=== PATIENT | female | born 1960 | race Caucasian/White ===

== ENCOUNTER 2020-07-07 13:50 | Inpatient (IN) | payer OTHER, SELFPAY ==
--- NOTE | ~2020-07-07 | XR_ITS ---
XR hip LT 2V w AP pelvis DATE: 07/07/2020 14:30 INDICATION: Fall. Left hip and groin pain TECHNIQUE: AP pelvis and AP views of left hip COMPARISON: None FINDINGS: There is lucency overlying the left intertrochanteric and basicervical area, very suspiciou s for nondisplaced fracture. CT examination is recommended to confirm. No pelvic fracture. Pubic symphysis and sacroiliac joints are intact. Prominent proximal lateral left thigh soft tissue calcification. IMPRESSION: Suspected left intertrochanteric hip fracture; recommend CT left hip CT. Reviewed, dictated and finalized at location A. IMPRESSION: Suspected left intertrochanteric hip fracture; recommend CT left hi p CT.
--- NOTE | ~2020-07-07 | XR_ITS ---
EXAMINATION: XR surgery orthopedic DATE: 07/08/2020 17:39 INDICATION: Intertrochanteric fracture of proximal left femur. TECHNIQUE: 4 intraoperative fluoroscopic views of left hip were obtained. I was not present. Fluorosc opy exposure time was 371 seconds. COMPARISON: Left hip radiographs 07/07/2020 FINDINGS: There is an intertrochanteric fracture of proximal left femur in near-anatomic alignment st atus post open reduction internal fixation with antegrade intramedullary dom, femoral head/neck screw , and distal interlocking screw. IMPRESSION: 1. Intertrochanteric fracture of proximal left femur status post open reduction internal fixation. Reviewed, dictated and finalized at location A.
[2020-07-07 13:55] VITALS: BP 134/79; PULSE 79; RESP 20; TEMP 36.8; O2SAT 100
--- NOTE | 2020-07-07 14:18 | ED.GENADULT ---
HPI - General Adult General Chief complaint: Fall Stated complaint: fall/groin pain Time Seen by Provider: 07/07/20 13:59 Source: patient History of Present Illness HPI narrative: Patient is a 59 y/o female complaining of left groin pain after a fall 1 hour ago. She states that she was doing some yard work and tripped over a rake and fell on left side. She describes her pain as sharp and rates it as 6/10 at rest and 8/10 with movement. She states that her pain radiates to left thigh. Movement worsens the pain. She denies hitting head or having LOC. She has no neck pain, back pain, chest pain or abdominal pain. She was given Fentanyl 50 mcg by EMS and it helped with her pain. Related Data Home Medications Medication Instructions Recorded Confirmed citalopram [Celexa] 10 mg PO DAILY 07/07/20 07/07/20 Allergies Allergy/AdvReac Type Severity Reaction Status Date / Time Sulfa (Sulfonamide Allergy Mild Unknown Verified 07/07/20 15:37 Antibiotics) Review of Systems Constitutional: Constitutional: Denies chills, Denies fever(s), Denies headache(s) and Denies weakness Eyes: Eyes: Denies blurry vision ENT: Denies headache(s) and Denies neck pain Cardiovascular: Cardiovascular: Denies chest pain and Denies dyspnea Respiratory: Respiratory: Denies cough and Denies dyspnea Gastrointestinal: Gastrointestinal: Denies abdominal pain, Denies diarrhea, Denies nausea and Denies vomiting Genitourinary: Genitourinary: Denies hematuria and Denies dysuria Musculoskeletal: Musculoskeletal: Denies back pain, Denies neck pain and Reports other (left groin pain) Neurologic: Denies headache(s) and Denies weakness [facility] Social History Social History Gender identity (if verbalized by the patient): Female Exam Const: General: no acute distress and well developed Orientation/consciousness: oriented to person, oriented to place, oriented to time and patient oriented x3 HENMT: Head: normocephalic Ears: external ears normal General nose exam: Normal external nose present Eyes: General: appearance normal, both eyes and all related structures Conjunctivae: conjunctivae normal Neck: Neck: normal visual inspection and full ROM Chest: Chest palpation & inspection: normal inspection of the chest and no tenderness Resp: Effort & Inspection: normal respiratory effort Auscultation: clear to auscultation bilaterally Cardio: Rate: regular rate Rhythm: regular rhythm GI: GI Palp: No abdominal tenderness and Yes Soft to palpation Skin: General skin exam: normal color and turgor normal Neuro: General: oriented to person, oriented to place, oriented to time and patient oriented x3 Cognition (Neuro): normal cognition Extrem: General: normal to inspection, full ROM and no pedal edema Left lower extremity: hip/thigh Details: other (pain with passive ROM) Psych: Appearance: grossly normal Mental Status: mental status grossly normal Affect: normal affect Course Consultations Consultation #1: Discussed with Dr. Abbott, who agrees to admit. Date: 07/07/20 Time: 15:02 Vital Signs Vital signs: Vital Signs Temperature 36.8 C 07/07/20 13:55 Pulse Rate 79 07/07/20 13:55 Respiratory Rate 20 07/07/20 13:55 Blood Pressure 134/79 07/07/20 13:55 Pulse Oximetry 100 07/07/20 13:55 Temperature 36.8 C 07/07/20 16:30 Pulse Rate 82 07/07/20 16:30 Respiratory Rate 16 07/07/20 16:30 Blood Pressure 117/73 07/07/20 16:30 Pulse Oximetry 100 07/07/20 16:30 Medical Decision Making Vital Signs Vital Signs: Vital Signs Temperature 36.8 C 07/07/20 13:55 Pulse Rate 79 07/07/20 13:55 Respiratory Rate 20 07/07/20 13:55 Blood Pressure 134/79 07/07/20 13:55 Pulse Oximetry 100 07/07/20 13:55 Temperature 36.8 C 07/07/20 16:30 Pulse Rate 82 07/07/20 16:30 Respiratory Rate 16 07/07/20 16:30 Blood Pressure 117/73 07/07/20 16:30
[2020-07-07 15:00] VITALS: BP 109/75; PULSE 84; RESP 18; TEMP 36.6; O2SAT 100
--- NOTE | 2020-07-07 15:02 | ECG_ITS ---
Measurements Intervals [place] Rate: 83 P: 33 NM: 129 QRS: 45 QRSD: 91 T: 57 QT: 387 QTc: 457 Interpretive Statements SINUS RHYTHM BASELINE ARTIFACT- I, II, AVR, AVF, V3-V6 NORMAL ECG Electronically Signed On 07-07-2020 19:24:17 CDT by Nicolas Duque D.O.
[2020-07-07 15:08] LABS: Basophils Percent Auto 0.3 % (0.2-1.2); Eosinophils Absolute Auto 0.1 K/mm3 (0-0.3); Eosinophils Percent Auto 0.5 % (0-4.4); Hematocrit 39.4 % (37.0-47.0); Hemoglobin 12.4 g/dL (12.0-15.0); Immature Granulocyte Absolute 0.08 K/mm3 (0.00-0.031); Immature Granulocyte Percent A 0.7 % (0-0.5); Lymphocytes Absolute Auto 1.17 K/mm3 (0.9-3.2); Lymphocytes Percent Auto 10.2 % (18.3-44.2); Mean Corpuscular HGB Conc 31.5 g/dl (32-36); Mean Corpuscular Volume 92.3 fl (80-100); Mean Platelet Volume 9.7 fl (7.4-10.4); Monocytes Absolute Auto 0.5 K/mm3 (0.1-0.6); Monocytes Percent Auto 4.3 % (2.6-8.5); Neutrophils Absolute Auto 9.6 K/mm3 (1.3-6.7); Platelet Count Result 328 k/mm3 (150-375); Red Blood Count 4.27 M/mm3 (4.2-5.4); Red Cell Distribution Width 12.9 % (11.5-14.5); White Blood Count 11.5 K/mm3 (4.5-10.0)
[2020-07-07 15:20] LABS: Alanine Aminotransferase 35 U/L (4-35); Albumin Level 4.2 g/dL (3.5-5.1); Alkaline Phosphatase 86 U/L (38-126); Anion Gap 3 mmol/L (8-16); Aspartate Amino Transferase 40 U/L (14-36); Bilirubin,Total 0.3 mg/dL (0.2-1.3); Blood Urea Nitrogen 14 mg/dL (7-17); Calcium 9.1 mg/dL (8.4-10.2); Carbon Dioxide 32 mmol/L (22-30); Chloride 103 mmol/L (98-107); Estimated Glomerular Filt Rate > 60; Glucose 119 mg/dL (65-105); Potassium 4.1 mmol/L (3.4-5.0); Sodium 138 mmol/L (137-145)
[2020-07-07 15:24] LABS: INR 0.9; Prothrombin Time 12.3 Seconds (11.1-14.7)
[2020-07-07 15:26] LABS: Partial Thromboplastin Time 22.9 SECONDS (22.3-36.8)
[2020-07-07] MEDS: MORPHINE SULFATE (*CRX) 4 MG/ML INJ IV PUSH ×2 (15:37→18:33)
[2020-07-07 16:30] VITALS: BP 117/73; PULSE 82; RESP 16; TEMP 36.8; O2SAT 100
[2020-07-07 17:29] VITALS: BP 131/66; PULSE 88; RESP 16; TEMP 37; O2SAT 99
--- NOTE | 2020-07-07 17:40 | ADMGEN ---
This patient, Magnolia Covarrubias, was admitted to Medical Room 251-01. Patient/family oriented to hospital policies and general routines including ID bracelet, bed and alarms, visiting hours, pain management, procedures, bathroom and other care routines, personal items, smoking policy, room service/diet, and visiting hours. Information on how to activate the Rapid Response Team has been discussed. Patient/Family are encouraged to report perceived risks to care and to ask questions if they do not understand what they are told or what they should do.
[2020-07-07] MEDS: HYDROcodone/acetaminophen (*CRX) 5-325 MG TABLET 1 TAB PO ×2 (17:55→22:07)
[2020-07-07 18:00] VITALS: BP 131/55; PULSE 90; RESP 16; TEMP 36.7; O2SAT 99; BMI 22.6
[2020-07-07 21:35] VITALS: BP 121/64; PULSE 93; RESP 16; TEMP 36.7; O2SAT 99
[2020-07-08] VITALS (16 sets, daily range): BP systolic 101–151; BP diastolic 49–95; PULSE 74–102; RESP 13–18; TEMP 35.7–37; O2SAT 90–100
[2020-07-08] MEDS: HYDROcodone/acetaminophen (*CRX) 5-325 MG TABLET 1 TAB PO ×2 (02:07→08:49)
--- NOTE | 2020-07-08 09:10 | PM.IMHP ---
H&P: HPI History of Present Illness Date/Time: 07/08/20 09:10 59-year-old female admitted to [facility] via ambulance 59-year-old female admitted [facility] via ambulance after a fall at home tripping over a rake. Patient reports acute onset left hip pain status post fall. She was unable to bear weight. EMS was called and she was transported by ambulance to [facility] Emergency Room. Radiographs the left hip obtained in the emergency room reveal a left intertrochanteric hip fracture. Patient admitted to the orthopedic service for surgical planning and pain control. Chief Complaint: Left Hip IT Fracture Review of Systems Constitutional: Constitutional: Reports no additional constitutional complaints, Denies chills, Denies fatigue, Denies fever(s), Denies headache(s) and Denies weakness Eyes: Eyes: Denies change in vision ENT: Reports Normal hearing present and Denies headache(s) Cardiovascular: Cardiovascular: Denies chest pain and Denies dyspnea Respiratory: Respiratory: Denies cough, Denies dyspnea and Denies wheezing Gastrointestinal: Gastrointestinal: Denies constipation, Denies diarrhea, Denies nausea and Denies vomiting Genitourinary: Genitourinary: Denies hematuria and Denies dysuria Musculoskeletal: Musculoskeletal: Reports as per HPI, Denies numbness and Denies tingling Integumentary/Breasts: Skin/Breast: Reports as per HPI Neurologic: Reports as per HPI, Reports Normal hearing present, Denies headache(s), Denies numbness, Denies tingling and Denies weakness Psychiatric: Psychiatric: Reports no additional psychiatric complaints Endocrine: Endocrine: Reports no additional endocrine complaints and Denies fatigue Hematologic/Lymphatic: Hematologic/Lymphatic: Reports no additional hematologic/lymphatic complaints Allergic/Immunologic: Allergic/Immunologic: Reports no additional allergic/immunologic complaints and Denies wheezing [facility] Social History Social History (Updated 07/08/20 @ 09:18 by ADRIANA Umana) Social History: Patient lives at home with her . She currently works for the [employer]. She denies smoking. She occasionally drinks alcohol. Smoking status: Never smoker Second hand tobacco smoke exposure: No Alcohol intake: current Drinks per week: 3 Substance use: never Substance use type: does not use Living arrangements: with family Additional living arrangements comments: Patient lives at home with her Occupation/Education: occupation Additional occupation/education comments: Patient reports that she works for the [employer] Gender identity (if verbalized by the patient): Female Sexual Orientation (if Verbalized by the Patient): Straight or Heterosexual Spiritual care concerns: No Meds Home Medications and Allergies Home Medications Medication Instructions Recorded Confirmed Type citalopram [Celexa] 10 mg PO DAILY 07/07/20 07/07/20 History Allergies Allergy/AdvReac Type Severity Reaction Status Date / Time Sulfa (Sulfonamide Allergy Mild Unknown Verified 07/07/20 18:09 Antibiotics) Vital Signs Vital Signs - 24 hr 07/07/20 13:55 07/07/20 15:00 07/07/20 16:30 Temperature 36.8 C 36.6 C 36.8 C Pulse Rate 79 84 82 Respiratory Rate 20 18 16 Blood Pressure 134/79 109/75 117/73 Pulse Oximetry 100 100 100 07/07/20 17:29 07/07/20 18:00 07/07/20 21:35 Temperature 37.0 C 36.7 C 36.7 C Pulse Rate 88 90 93 Respiratory Rate 16 16 16 Blood Pressure 131/66 131/55 L 121/64 Pulse Oximetry 99 99 99 07/08/20 02:00 07/08/20 05:37 07/08/20 07:49 Temperature 36.8 C 36.6 C Pulse Rate 81 74 Respiratory Rate 16 16 Blood Pressure 107/52 L 101/54 L Pulse Oximetry 98 100 96 07/08/20 08:00 Temperature 35.7 C L Pulse Rate 77 Respiratory Rate 18 Blood Pressure 113/52 L Pulse Oximetry 100 Exam Const: General: cooperative and comfortable Nutritional Appe
--- NOTE | 2020-07-08 13:30 | PC.NURSE ---
To OR per bed, IV intact. Report given to Ct RN.
[2020-07-08] MEDS: LACTATED RINGERS 1,000 ML 30 ML IV CONT ×2 (13:40→17:48)
--- NOTE | 2020-07-08 13:49 | WPDANESEPPF ---
Anes - Initial Pre Proc Eval Procedure: Operation Date: 07/08/20 15:00 Proposed Procedures p Left Hip Gamma Nail - Asad Abbott MD Date/Time: 07/08/20 13:49 Surgeon: Asad Abbott MD Pre Op Diagnosis: left hip fracture Patient Data Age: 59 Gender: F Height: 1.7 m Weight: 65.7 kg Last Vital Signs Temp 36.7 C 07/08/20 12:00 Pulse 86 07/08/20 12:00 Resp 18 07/08/20 12:00 BP 119/54 L 07/08/20 12:00 Pulse Ox 98 07/08/20 12:00 Allergies Allergy/AdvReac Type Severity Reaction Status Date / Time Sulfa (Sulfonamide Allergy Mild Unknown Verified 07/08/20 13:41 Antibiotics) Home Medications Medication Instructions Recorded Confirmed Type citalopram [Celexa] 10 mg PO DAILY 07/07/20 07/07/20 History Laboratory Tests 07/07/20 07/07/20 07/07/20 15:03 15:03 15:03 WBC 11.5 K/mm3 H K/mm3 (4.5-10.0) RBC 4.27 M/mm3 M/mm3 (4.2-5.4) Hgb 12.4 g/dL g/dL (12.0-15.0) Hct 39.4 % % (37.0-47.0) MCV 92.3 fl fl (80-100) MCH 29.0 pg pg (26-34) MCHC 31.5 g/dl L g/dl (32-36) RDW 12.9 % % (11.5-14.5) Plt Count 328 k/mm3 k/mm3 (150-375) MPV 9.7 fl fl (7.4-10.4) Immature Gran % (Auto) 0.7 % H % (0-0.5) Neut % (Auto) 84.0 % H % (45.5-73.1) Lymph % (Auto) 10.2 % L % (18.3-44.2) [place] % (Auto) 4.3 % % (2.6-8.5) Eos % (Auto) 0.5 % % (0-4.4) Baso % (Auto) 0.3 % % (0.2-1.2) Lymph # (Auto) 1.17 K/mm3 K/mm3 (0.9-3.2) [place] # (Auto) 0.5 K/mm3 K/mm3 (0.1-0.6) Eos # (Auto) 0.1 K/mm3 K/mm3 (0-0.3) Baso # (Auto) 0.0 K/mm3 K/mm3 (0.0-0.1) Abs Immat Gran (auto) 0.08 K/mm3 H K/mm3 (0.00-0.031) Absolute Neuts (auto) 9.6 K/mm3 H K/mm3 (1.3-6.7) Absolute Nucleated RBC 0.0 K/mm3 K/mm3 (0.0-0.012) Nucleated RBC % 0.0 % % (0.0-0.2) PT 12.3 Seconds Seconds (11.1-14.7) INR 0.9 APTT 22.9 SECONDS SECONDS (22.3-36.8) Sodium 138 mmol/L mmol/L (137-145) Potassium 4.1 mmol/L mmol/L (3.4-5.0) Chloride 103 mmol/L mmol/L (98-107) Carbon Dioxide 32 mmol/L H mmol/L (22-30) Anion Gap 3 mmol/L L mmol/L (8-16) BUN 14 mg/dL mg/dL (7-17) Creatinine 0.70 mg/dL mg/dL (0.7-1.0) Estim Creat Clear Calc Not Reportable Estimated GFR > 60 (59 - ) Glucose 119 mg/dL H mg/dL (65-105) Calcium 9.1 mg/dL mg/dL (8.4-10.2) Total Bilirubin 0.3 mg/dL mg/dL (0.2-1.3) AST 40 U/L H U/L (14-36) ALT 35 U/L U/L (4-35) Alkaline Phosphatase 86 U/L U/L (38-126) Total Protein 7.0 g/dL g/dL (6.3-8.2) Albumin 4.2 g/dL g/dL (3.5-5.1) Blood Type Antibody Screen 07/07/20 15:13 WBC RBC Hgb Hct MCV MCH MCHC RDW Plt Count MPV Immature Gran % (Auto) Neut % (Auto) Lymph % (Auto) [place] % (Auto) Eos % (Auto) Baso % (Auto) Lymph # (Auto) [place] # (Auto) Eos # (Auto) Baso # (Auto) Abs Immat Gran (auto) Absolute Neuts (auto) Absolute Nucleated RBC Nucleated RBC % PT INR APTT Sodium Potassium Chloride Carbon Dioxide Anion Gap BUN Creatinine Estim Creat Clear Calc Estimated GFR Glucose Calcium Total Bilirubin AST ALT Alkaline Phosphatase Total Protein Albumin Blood Type A Negative Antibody Screen Negative Patient hx anesthesia problems: none Family hx anesthesia problems: none [facility] Past Medical History Medical History (Updated 07/08
[2020-07-08] MEDS: TRANEXAMIC ACID 1,000MG/ISO100 1,000 MG/100 ML BAG 200 MG IVPB (13:53)
--- NOTE | 2020-07-08 16:02 | WPDHPUPDATE1 ---
History and Physical Update Update Date/Time: 07/08/20 16:02 History and Physical has been reviewed, including an updated exam of the patient. There are NO changes in the patient's condition. Risks, benefits, and alternatives have been discussed and questions answered. Patient agrees to proceed with procedure.
[2020-07-08] MEDS: ceFAZolin 2 GM/D5W 50 ML 2 GM/50 ML BAG IVPB ×2 (16:07→23:39)
[2020-07-08] MEDS: TRANEXAMIC ACID 1,000 MG/10 ML AMPUL 1000 MG IV PUSH (17:31)
--- NOTE | 2020-07-08 17:45 | PM.PROC ---
Procedure Note - Detailed Date of procedure: 07/08/20 Pre-op diagnosis: left hip fracture Post-op diagnosis: same Procedure performed: INSERTION OF GAMMA OSWALDO LEFT HIP FRACTURE Description of procedure: THE PATIENT WAS TAKEN TO THE OR AND PLACED ON A FRACTURE TABLE AFTER RECEIVING GIVEN GENERAL ANESTHESIA. THE LEFT LOWER EXTREMITY WAS PLACED IN A TRACTION BOOT AND USING SOME TRACTION AND INTERNAL ROTATION THE INNER TROCHANTERIC FRACTURE WAS REDUCED TO ANATOMIC POSITION. NEXT THE LEFT LOWER EXTREMITY WAS PREPPED AND DRAPED IN THE STERILE FASHION. AN INCISION WAS MADE PROXIMAL TO THE TIP OF THE GREATER TROCHANTER AND DISSECTION CONTINUED TILL THE TIP OF THE GREATER TROCHANTER WAS PALPATED. A GUIDE WAS PLACED DOWN THE FEMORAL CANAL AND PAST THE FRACTURE SITE. THIS WAS CHECKED ON FLUOROSCOPY AND FOUND TO BE IN GOOD POSITION. AN INITIAL REAMER WAS USED TO REAM THE FEMORAL CANAL. A 10 BY 180 MM GAMMA OSWALDO WAS INSERTED TILL THE CORRECT POSITION WAS IDENTIFIED ON XRAY. A GUIDE PIN WAS INSERTED AT [address] TILL IT REACHED THE TIP OF THE SUB CHONDRAL BONE SEEN ON XRAY. AFTER REAMING, LAG SCREW WAS INSERTED AT [address] MEASURING 95 MM. XRAYS SHOWED IT TO BE IN GOOD POSITION. THE LAG SCREW WAS LOCKED PROXIMALLY WITH A LOCKING SCREW. NEXT A DISTAL LOCKING SCREW WAS PLACED ACROSS THE OSWALDO AND WAS IN GOOD POSITION ON XRAY. THE TRACTION WAS RELEASED. THE WOUNDS WERE WASHED. THE DEEP FASCIA WAS REPAIRED WITH 0 VICRYL SUTURE, THE SUB CUTANEOUS LAYER WITH 2-0 VICRYL, AND THE SKIN WITH RIMMA. THE WOUNDS WERE WASHED AND THEN STERILE DRESSING WAS APPLIED. PATIENT WAS EXTUBATED AND SENT TO RECOVERY ROOM. Anesthesia: GLMA Surgeon: Asad Abbott MD Estimated blood loss (mL): 250 Drains: No Packing: No Pathology: none sent Complications: No immediate complications Condition: stable Disposition: PACU
--- NOTE | 2020-07-08 18:42 | PC.NURSE ---
Returned from OR per bed. Report received from MILDRED Mcgee.
[2020-07-08] MEDS: MORPHINE SULFATE (*CRX) 4 MG/ML INJ 3 MG IV PUSH (19:29)
[2020-07-09] VITALS: BP 118/54; PULSE 82; RESP 16; TEMP 36.4; O2SAT 98
[2020-07-09 04:00] VITALS: BP 118/68; PULSE 78; RESP 18; TEMP 36.3; O2SAT 98
[2020-07-09 05:44] LABS: Basophils Percent Auto 0.2 % (0.2-1.2); Hemoglobin 11.1 g/dL (12.0-15.0); Immature Granulocyte Absolute 0.03 K/mm3 (0.00-0.031); Immature Granulocyte Percent A 0.3 % (0-0.5); Lymphocytes Absolute Auto 0.93 K/mm3 (0.9-3.2); Lymphocytes Percent Auto 9.4 % (18.3-44.2); Mean Corpuscular HGB Conc 32.6 g/dl (32-36); Mean Corpuscular Hemoglobin 29.2 pg (26-34); Mean Corpuscular Volume 89.5 fl (80-100); Mean Platelet Volume 10.1 fl (7.4-10.4); Monocytes Absolute Auto 0.6 K/mm3 (0.1-0.6); Monocytes Percent Auto 6.2 % (2.6-8.5); Neutrophils Absolute Auto 8.3 K/mm3 (1.3-6.7); Neutrophils Percent Auto 83.9 % (45.5-73.1); Platelet Count Result 269 k/mm3 (150-375); Red Cell Distribution Width 12.8 % (11.5-14.5); White Blood Count 9.9 K/mm3 (4.5-10.0)
--- NOTE | 2020-07-09 07:32 | P.PNAN_ITS ---
Anes - Prog Note Post-Op Date/Time: 07/09/20 07:32 Cardiovascular status: normal Respiratory status: normal Airway patency: baseline Mental status: baseline Post-Op hydration status: normal Vital Signs: Last Vital Signs Temp 36.3 C L 07/09/20 04:00 Pulse 78 07/09/20 04:00 Resp 18 07/09/20 04:00 BP 118/68 07/09/20 04:00 Pulse Ox 98 07/09/20 04:00 Pain Score (VAS): 4 I/O: Intake & Output 07/08/20 07/08/20 07/09/20 15:59 23:59 07:59 Intake Total 100 150 350 Output Total 300 Balance -200 150 350 Laboratory Tests 07/09/20 05:17 07/07/20 15:03 07/09/20 05:17 WBC 9.9 RBC 3.80 L Hgb 11.1 L Hct 34.0 L MCV 89.5 MCH 29.2 MCHC 32.6 RDW 12.8 Plt Count 269 MPV 10.1 Immature Gran % (Auto) 0.3 Neut % (Auto) 83.9 H Lymph % (Auto) 9.4 L [place] % (Auto) 6.2 Eos % (Auto) 0.0 Baso % (Auto) 0.2 Lymph # (Auto) 0.93 [place] # (Auto) 0.6 Eos # (Auto) 0.0 Baso # (Auto) 0.0 Abs Immat Gran (auto) 0.03 Absolute Neuts (auto) 8.3 H Absolute Nucleated RBC 0.0 Nucleated RBC % 0.0 Post-procedural complaints: none Patient Feedback: Patient satisfied with anesthetic care.
[2020-07-09] MEDS: ceFAZolin 2 GM/D5W 50 ML 2 GM/50 ML BAG IVPB ×2 (09:11→18:03)
[2020-07-09] MEDS: DOCUSATE SODIUM 100 MG CAPSULE PO ×2 (09:11→16:35)
[2020-07-09] MEDS: HYDROcodone/acetaminophen (*CRX) 7.5-325 MG TABLET 1 TAB PO ×2 (09:11→13:47)
[2020-07-09] MEDS: ASPIRIN 325 MG ENTERIC TABLET 650 MG PO (09:12)
[2020-07-09] MEDS: CITALOPRAM HYDROBROMIDE 10 MG TABLET PO (09:12)
[2020-07-09 10:00] VITALS: BP 108/63; PULSE 96; RESP 16; TEMP 36.3; O2SAT 98
--- NOTE | 2020-07-09 10:15 | PM.PNORT ---
Progress Note: A&P Assessment and Plan (1) Closed intertrochanteric fracture of left femur: Qualifiers: Encounter type: initial encounter Fracture alignment: nondisplaced Qualified Code(s): S72.145A - Nondisplaced intertrochanteric fracture of left femur, initial encounter for closed fracture Code(s): S72.142A - Displaced intertrochanteric fracture of left femur, initial encounter for closed fracture Status: Acute Assessment and Plan: POD #1: INSERTION OF GAMMA OSWALDO LEFT HIP FRACTURE Continue PT/OT. TTWB. Walker. HIGH FALL RISK. Continue pain control. Ice lateral hip. DVT prophylaxis. Incentive spirometry. Aspirin. SCDs. Patient prefers home health as opposed to SNF. Per patient, she has a lot of help at home. Dispo: Home with Home Health pending clearance with PT/OT. Subjective Subjective Date/Time Seen: 07/09/20 10:15 POD #1:INSERTION OF GAMMA OSWALDO LEFT HIP FRACTURE No new complaints. Pain well controlled. Hopeful for discharge home as opposed to SNF. Review of Systems Constitutional: Constitutional: Denies chills, Denies fatigue, Denies fever(s), Denies night sweats and Denies weakness Cardiovascular: Cardiovascular: Denies chest pain, Denies lightheadedness, Denies palpitations and Denies dyspnea Respiratory: Respiratory: Denies cough, Denies dyspnea and Denies wheezing Gastrointestinal: Gastrointestinal: Denies abdominal pain, Denies diarrhea, Denies nausea and Denies vomiting Musculoskeletal: Musculoskeletal: Reports arthralgias (left hip ), Reports joint swelling (left hip ) and Denies numbness Neurologic: Denies numbness and Denies weakness Endocrine: Endocrine: Denies fatigue and Denies palpitations Allergic/Immunologic: Allergic/Immunologic: Denies wheezing Exam Const: General: comfortable and no acute distress Resp: Effort & Inspection: normal respiratory effort Cardio: Rate: regular rate Rhythm: regular rhythm GI: Inspection: non-distended Skin: General skin exam: normal color Wounds: wounds noted (incision left hip C/D/I ) Extrem: Right lower extremity: normal to inspection and full ROM Left lower extremity: hip/thigh Details: tenderness Location: of the hip Location: laterally and anteriorly, swelling (thigh soft ) Location: of the hip (lateral. ), abnormal ROM (limitations with internal/external rotation and flexion/extension due to recent surgical intervention ), ecchymosis and other (incision lateral hip c/d/i. ), knee Details: normal to inspection and normal ROM; no tenderness and no swelling, lower leg (Negative Oscar's Sign ) Details: no edema, ankle (+ankle dorsiflexion/plantarflexion ) Details: normal to inspection, no edema and normal ROM; no tenderness, no swelling and no warmth and foot Details: normal capillary refill, toes with normal ROM, vascular exam Details: dorsalis pedis pulse present and motor-sensory exam light-touch normal in all toes; no tenderness, no ecchymosis and no crepitus Psych: Mental Status: mental status grossly normal Affect: normal affect Objective Data Vital Signs Vital Signs: Vital Signs - 24 hr 07/08/20 12:00 07/08/20 13:25 07/08/20 17:48 Temperature 36.7 C 36.6 C 36.4 C L Pulse Rate 86 92 98 Respiratory Rate 18 17 Blood Pressure 119/54 L 121/49 L 148/95 H Pulse Oximetry 98 97 100 07/08/20 18:00 07/08/20 18:15 07/08/20 18:30 Temperature Pulse Rate 102 H 98 87 Respiratory Rate 16 13 15 Blood Pressure 122/89 137/84 118/65 Pulse Oximetry 100 96 95 07/08/20 18:51 07/08/20 19:06 07/08/20 19:36 Temperature 36.4 C 36.9 C 37.0 C Pulse Rate 89 95 89 Respiratory Rate 18 18 16 Blood Pressure 127/58 L 125/53 L 132/65 Pulse Oximetry 96 90 97 07/08/20 20:00 07/08/20 20:36 07/08/20 22:00 Temperature 36.6 C 36.4 C Pulse Rate 95 83 76 Respiratory Rate 18 16 16 Blood Pressure 124/57 L 151/70 H Pulse Oximetry 90 97 100 07/09/20 00:00 07/09/20 04:00 Temperature 36.4 C 36.3 C L Pulse Rate 82 78 Re
[2020-07-09 14:00] VITALS: BP 111/56; PULSE 88; RESP 14; TEMP 36.3; O2SAT 99
[2020-07-09 18:00] VITALS: BP 104/57; PULSE 89; RESP 14; TEMP 36.4; O2SAT 98
[2020-07-09 21:38] VITALS: BP 107/56; PULSE 89; RESP 18; TEMP 36.4; O2SAT 100
[2020-07-10 02:00] VITALS: BP 151/65; PULSE 56; RESP 18; TEMP 36.4; O2SAT 97
[2020-07-10 06:00] VITALS: BP 105/56; PULSE 86; RESP 16; TEMP 36.4; O2SAT 99
[2020-07-10] MEDS: ASPIRIN 325 MG ENTERIC TABLET 650 MG PO (09:22)
[2020-07-10] MEDS: DOCUSATE SODIUM 100 MG CAPSULE PO (09:23)
[2020-07-10] MEDS: CITALOPRAM HYDROBROMIDE 10 MG TABLET PO (09:23)
[2020-07-10] MEDS: HYDROcodone/acetaminophen (*CRX) 7.5-325 MG TABLET 1 TAB PO (09:27)
[2020-07-10 09:34] VITALS: RESP 16; O2SAT 98
[2020-07-10 10:00] VITALS: BP 118/47; PULSE 102; RESP 14; TEMP 36.6; O2SAT 98
[2020-07-10 14:00] VITALS: BP 100/56; PULSE 87; RESP 18; TEMP 36.1; O2SAT 98
--- NOTE | 2020-07-10 14:43 | PM.PNORT ---
Progress Note: A&P Additional Plan pod 2 stable and ready for discharge. she will be discharged home with a follow-up in 2 weeks. Subjective Subjective Date/Time Seen: 07/10/20 14:43 pod 2 doing well no calf pain, no sob or cp Exam Extrem: Other: vss afebrile dressing dry nv intact neg homans sign calf soft non tender. Objective Data Vital Signs Vital Signs: Vital Signs - 24 hr 07/09/20 18:00 07/09/20 21:38 07/10/20 02:00 Temperature 36.4 C L 36.4 C L 36.4 C Pulse Rate 89 89 56 L Respiratory Rate 14 18 18 Blood Pressure 104/57 L 107/56 L 151/65 H Pulse Oximetry 98 100 97 07/10/20 06:00 07/10/20 09:34 07/10/20 10:00 Temperature 36.4 C 36.6 C Pulse Rate 86 102 H Respiratory Rate 16 16 14 Blood Pressure 105/56 L 118/47 L Pulse Oximetry 99 98 98 Intake/Output Intake/Output: Intake & Output 07/07/20 07/08/20 07/09/20 07/10/20 23:59 23:59 23:59 23:59 Intake Total 350 1570 900 Output Total 400 650 600 Balance -50 920 300 Meds/Results Medications: Active Medications Generic Name Dose Route Start Last Admin Trade Name Freq PRN Reason Stop Dose Admin Acetaminophen 650 mg 07/08/20 18:51 Acetaminophen 325 Mg Tablet PO Q6H PRN Pain Rated 1-3 Hydrocodone Bitart/Acetaminophen 1 tab 07/08/20 18:51 07/10/20 09:27 Hydrocodone/Acetaminophen (*Crx) 7.5-325 Mg Tablet PO 1 tab Q3H PRN Administration Pain Rated 4-6 Aspirin 650 mg 07/09/20 09:00 07/10/20 09:22 Aspirin 325 Mg Enteric Tablet PO 650 mg DAILY MELANIE Administration Citalopram Hydrobromide 10 mg 07/09/20 09:00 07/10/20 09:23 Citalopram Hydrobromide 10 Mg Tablet PO 10 mg DAILY MELANIE Administration Diazepam 5 mg 07/08/20 18:51 Diazepam (*Crx) 5 Mg Tablet PO Q8H PRN Muscle Spasm Docusate Sodium 100 mg 07/09/20 09:00 07/10/20 09:23 Docusate Sodium 100 Mg Capsule PO 100 mg BID MELANIE Administration Magnesium Hydroxide 30 ml 07/08/20 18:51 Magnesium Hydroxide Susp 30 Ml Udc PO BID PRN Constipation Morphine Sulfate 3 mg 07/08/20 18:51 07/08/20 19:29 Morphine Sulfate (*Crx) 4 Mg/Ml Inj IV PUSH 3 mg Q3H PRN Administration Pain Rated 7-10 Ondansetron HCl 4 mg 07/08/20 18:51 Ondansetron Inj 4 Mg/2 Ml Vial IV PUSH Q4H PRN Nausea And Vomiting Radiology Results: ITS Impressions Hip/Pelvis X-Ray 07/07/20 14:33 IMPRESSION: Suspected left intertrochanteric hip fracture; recommend CT left hip CT. Intraoperative X-Ray 07/08/20 17:52 IMPRESSION: 1. Intertrochanteric fracture of proximal left femur status post open reduction internal fixation.
--- NOTE | 2020-07-10 14:45 | P.DS_ITS ---
DS: Admitting Diagnosis Admitting Diagnosis Admitting Diagnosis: LEFT HIP FRACTURE DS: Discharge Diagnosis Discharge Diagnosis (1) Closed intertrochanteric fracture of left femur: Qualifiers: Encounter type: initial encounter Fracture alignment: nondisplaced Qualified Code(s): S72.145A - Nondisplaced intertrochanteric fracture of left femur, initial encounter for closed fracture Code(s): S72.142A - Displaced intertrochanteric fracture of left femur, initial encounter for closed fracture Status: Acute DS: Summary Hospital Course Hospital Course: ASAD WAS ADMITTED FOR A LEFT HIP IT FRACTURE. SHE UNDERWENT SURGERY WITH INSERTION OF GAMMA OSWALDO FOR FRACTURE STABLIZATION OF HER LEFT HIP FRACTURE. SHE DID DURING SURGERY WITH NO COMPLICATIONS. POD 1 SHE HAD SLOW PROGRESS WITH PT. HER PAIN WAS WELL CONTROLLED, SHE WAS TAKING GOOD PO INTAKE. SHE WAS ON DVT PROPHYLAXIS WELL. ON POD 2 SHE IMPROVED WELL AND WAS WELL SECURE WITH PT. SHE WILL BE DISCHARGED HOME AND WILL F/U IN 2 WEEKS FOR STAPLE REMOVAL Time spent discussing smoking cessation with patient: more than 10 minutes Status at Discharge Functional status at discharge: uses cane/walker Overall status at discharge: patient is not back to baseline Time Spent with Patient Time attestation: Total time spent providing and/or coordinating discharge services: Time spent: Less than 30 minutes Discharge Plan Discharge Attending physician on discharge: Asad Abbott Discharging Clinician: Asad Abbott Anticipated Discharge Date/Time: 07/10/20 13:00 Patient Disposition: Home Health Service Activity: may shower, no driving and follow weight bearing status Diet: as tolerated Wound Care Instructions: follow printed instructions Discharge Instructions: Orthopedic Recommendations Dr. Asad Abbott [phone] * Change dressing daily. Dry gauze dressing to the lateral hip incisions. Yuan to be removed by home health RN on the 14th day after surgery. * Ice lateral hip. * Continue pain control. All medications called to pharmacy. Bowel regimen. * DVT prevention x28 days. * Toe touch weight bearing LEFT lower extremity. Walker. Fall precautions. * Follow up appt scheduled below. Per Care Coordination: Patient to have [facility] [phone] for RN/PT/OT eval and treat. RN please fax discharge instructions to: [phone]. Patient Instructions: Antibiotic Form, Hip Fracture (GEN) Stand Alone Forms: General Discharge Information Follow-up/Referrals: Asad Abbott MD [Physician] - 2 Weeks Discharge Medications: New celecoxib [Celebrex] 200 mg Capsule 200 mg PO DAILY@0800 14 Days Qty: 14 RF: 0 aspirin 325 mg Tablet,Delayed Release (Dr/Ec) 650 mg PO DAILY 28 Days Qty: 56 RF: 0 hydrocodone-acetaminophen 7.5-325 mg Tablet 1 tablet PO Q4-6H PRN (Reason: Pain Rated 4-6) Qty: 56 RF: 0 docusate sodium 100 mg Capsule 100 mg PO BID 30 Days Qty: 60 RF: 0 Continued citalopram [Celexa] 10 mg Tablet 10 mg PO DAILY RF: 0 Date of admission: 07/07/20 15:03 Primary Care Provider: Keven Crenshwa Admitting Provider: Asad Abbott Attending physician on admission: Asad Abbott Condition: Stable
== END 2020-07-10 16:15 | disposition home health service (06) | DRG 482 ==
LOC: ANHED 16:49 → ANH2MED 17:05
PROVIDERS: Admitting Provider Orthopaedic Surgery; Emergency Provider Emergency Medicine; PCP Family Medicine Adolescent Medicine; Visit Provider Orthopaedic Surgery
PROC: 0QS736Z Reposition Left Upper Femur with Intramedullary Internal Fixation Device, Percutaneous Approach (ICD-10-PCS; CPT 27245; principal; 2020-07-08 15:00)
DX: S72.145A Nondisplaced intertrochanteric fracture of left femur, initial encounter for closed fracture (principal); W01.0XXA Fall on same level from slipping, tripping and stumbling without subsequent striking against object, initial encounter; Y93.H2 Activity, gardening and landscaping; Z88.2 Allergy status to sulfonamides
CPT/HCPCS: 36415; 73502; 80053; 85025; 85610; 85730; 86850; 86900; 86901; 93005; 97110; 97116; 97161; 97165; 97530; 97535; 99285; A9270; C1713; J0690; J1100; J2001; J2250; J2270; J2405; J2704; J3010; J7120

== ENCOUNTER 2020-10-21 12:37 | Outpatient (CLI) | payer OTHER, SELFPAY ==
--- NOTE | ~2020-10-21 | DEXA_ITS ---
Bone Density Report Name: Magnolia Velásquez Age: 59 Sex: Female Ethnicity: White Date of : 1960 Indication: postmenopausal; height loss; prior fracture; Referring Provider: Keven Crenshaw Study: Bone densitometry was performed. Exam Date: October 21, 2020 Accession number: [id number] Bone Density: Region BMD T-score Z-score Classification AP Spine (L1-L4) 0.758 -2.6 -1.3 Osteoporosis Femoral Neck (Right) 0.537 -2.8 -1.6 Osteoporosis Total Hip (Right) 0.620 -2.6 -1.8 Osteoporosis World Health Organization criteria for BMD impression classify patients as: Normal (T-score at or above -1.0), Osteopenia (T-score between -1.0 and -2.5), or Osteoporosis (T-score at or below -2.5). 10-year Fracture Risk: FRAX not reported because: Some T-score for Spine Total or Hip Total or Femoral Neck at or below -2.5 Prior hip or vertebral fracture Clinical Information Provided by Patient: Have had a previous hip or vertebral fracture Has had a low trauma fracture Patient maximum height was 67 Menopause Age: 53 Drinks caffeinated beverages Onset of menses at age 14 Number of children 4 Impression: The patient has established osteoporosis, based on the Right Femoral Neck T-score and the existence of a prior fracture. The patient has risk factors, including: previous fracture. Discussion: HIGH RISK OF FRACTURE. BONE DENSITY IS UNDESIRABLY LOW AT ONE OR MORE SKELETAL SITES, CONSISTENT WITH POSTMENOPAUSAL OSTEOPOROSIS. This patient's lowest T-score, in a patient who has previously fractured, meets the World Health Organization's (WHO) criteria for severe osteoporosis. In untreated patients, the risk of osteoporotic fracture increases approximately two-fold for each 1.0 SD decrease in T-score. Low bone density is not the only risk factor for fracture; also consider factors such as patient's age, frailty or poor health, risk of falling, risk of injury, previous osteoporotic fracture, family history of osteoporosis, cigarette smoking, low body weight, etc. Not everyone with low bone mineral density has osteoporosis; osteomalacia and other metabolic bone disorders should also be considered. Patients who have osteoporosis should be evaluated for specific diseases and conditions (secondary causes) that may cause or contribute to bone loss. The [place] Association of Clinical Endocrinologists (AACE) and National Osteoporosis Foundation (NOF) recommend pharmacologic intervention for all postmenopausal women with a previous hip or vertebral fracture and a T-score in this range. The patient should follow a healthful lifestyle (good nutrition with adequate calcium and vitamin D, and appropriate weight-bearing exercise). Follow-Up: Consider a repeat BMD and Vertebral Fracture Assessment (VFA) exam in 2 years or sooner if medically necessary, to reassess
== END 2020-10-21 12:38 | disposition home or self-care (01) ==
LOC: ANHIMG 12:38
PROVIDERS: PCP Family Medicine Adolescent Medicine; Visit Provider Family Medicine Adolescent Medicine
DX: Z78.0 Asymptomatic menopausal state (principal); M81.0 Age-related osteoporosis without current pathological fracture
CPT/HCPCS: 77080

== ENCOUNTER 2023-01-03 22:08 | Emergency (ER) | payer OTHER, SELFPAY ==
[2023-01-03 22:08] VITALS: BP 118/61; PULSE 72; RESP 16; TEMP 36.3; O2SAT 99
[2023-01-03 22:29] VITALS: O2SAT 100
[2023-01-03] MEDS: predniSONE 20 MG TABLET 60 MG PO (23:01)
[2023-01-03] MEDS: FAMOTIDINE 20 MG TABLET PO (23:01)
[2023-01-03] MEDS: diphenhydrAMINE HCl CAP 25 MG CAPSULE 50 MG PO (23:01)
--- NOTE | 2023-01-04 00:27 | ED.ALLEREA ---
HPI - Allergic Reaction General Chief complaint: Allergic Reaction Stated complaint: Allergic reaction, hives, top lip swelling Time Seen by Provider: 01/03/23 22:33 History of Present Illness HPI narrative: Patient presents to the emergency department from home with her family. She has diffuse hives that started at 3 AM. Took a dose of Benadryl without improvement. Then upper lip started to swell. Denies difficulty swallowing or breathing. Denies fevers or chills. Had hives when she was in her teenage years but nothing since. Denies any new soaps or products. Unsure what she could possibly be allergic to. Denies taking blood pressure medications. Related Data Home Medications Medication Instructions Recorded Confirmed citalopram 10 mg tablet (Celexa) 10 mg PO DAILY 07/07/20 12/17/21 Allergies Allergy/AdvReac Type Severity Reaction Status Date / Time Sulfa (Sulfonamide Allergy Mild Unknown Verified 01/03/23 22:15 Antibiotics) Review of Systems Review of Systems: Review of systems negative except what is documented in the HPI [facility] Past Medical History Medical History (Updated 01/04/23 @ 00:31 by Roselia Ribeiro MD) Anxiety Closed intertrochanteric fracture of left femur Depression Wears glasses Surgical History Surgical History (Updated 12/16/21 @ 07:35 by Keven Crenshaw MD) History of hip surgery (07/2020) ORIF left hip fx Family History Family History Other Depression Social History Social History (Updated 01/13/21 @ 14:18 by Samina Delgado MA) Social History: Patient lives at home with her . She currently works for the [employer]. She denies smoking. She occasionally drinks alcohol. Smoking status: Never smoker Second hand tobacco smoke exposure: No Alcohol intake: current Drinks per week: 2 Substance use: never Substance use type: does not use Living arrangements: with family Additional living arrangements comments: Patient lives at home with her Occupation/Education: occupation Additional occupation/education comments: Patient reports that she works for the [employer] Gender identity (if verbalized by the patient): Female Sexual Orientation (if Verbalized by the Patient): Straight or Heterosexual Spiritual care concerns: No Exam Narrative: GENERAL: Well-appearing, well-nourished, and in no acute distress. HEAD: Normocephalic, atraumatic. EYES: PERRLA and EOMI. ENT: Nares clear, no rhinorrhea or epistaxis. Mucous membranes moist. Upper lip slightly swollen NECK: Supple. CHEST: Clear to auscultation. No respiratory distress. HEART: Regular rate and rhythm. ABDOMEN: Soft, nontender, nondistended. EXTREMITIES: Normal range of motion. No edema. SKIN: Warm, dry, no rash. Hives diffusely NEURO: No focal deficits. Alert and oriented x3. PSYCH: Normal mood and affect. Course Course Emergency Course: Hives almost gone after Benadryl Pepcid and steroids. Overall feeling much better. Lip swelling much improved. Will discharge to home Vital Signs Vital signs: Vital Signs Temperature 36.3 C L 01/03/23 22:08 Pulse Rate 72 01/03/23 22:08 Respiratory Rate 16 01/03/23 22:08 Blood Pressure 118/61 01/03/23 22:08 Pulse Oximetry 99 01/03/23 22:08 Oxygen Delivery Room Air 01/03/23 22:08 Temperature 36.3 C L 01/03/23 22:08 Pulse Rate 72 01/03/23 22:08 Respiratory Rate 16 01/03/23 22:08 Blood Pressure 118/61 01/03/23 22:08 Pulse Oximetry 100 01/03/23 22:29 Oxygen Delivery Room Air 01/03/23 22:08 Discharge Plan Discharge Clinical Impression: Urticaria Allergic reaction Qualifiers: Encounter type: initial encounter Qualified Code(s): T78.40XA - Allergy, unspecified, initial encounter Patient Disposition: Home, Self-Care Condition: Stable Instructions: An
[2023-01-04 00:40] VITALS: BP 110/68; PULSE 68; RESP 15; O2SAT 99
== END 2023-01-04 00:41 | disposition home or self-care (01) ==
PROVIDERS: Emergency Provider Emergency Medicine; PCP Family Medicine Adolescent Medicine
DX: L50.9 Urticaria, unspecified (principal); T78.40XA Allergy, unspecified, initial encounter; F41.9 Anxiety disorder, unspecified
CPT/HCPCS: 99283; A9270; J7512

== ENCOUNTER 2024-04-13 00:46 | Day surgery (SDC) | payer BC, SELFPAY ==
[2024-03-31 13:36] VITALS: BMI 23.9
--- OUTSIDE RECORDS SUMMARY | 2024-04-13 00:48 | XMS_ITS | Referral Summary ---
Author Organization [facility] Address [address] [address] Care Team Providers Care Ship Officer Name Role Phone Keven Crenshaw MD Primary Care Provider + Source Comments [facility],non-owned Affiliates and Associated Physician Practices is amultiple site organization consisting of ambulatory clinics and hospital sitesin [place], [place], [place] and [place]. This disclosure is being madepursuant to the Care Everywhere program and may not contain all information available regarding this patient. Last updated 17.[facility] Allergies Active Allergy Reactions Criticality Noted Date Comments Sulfa Drugs Rash Medium 09/24/2010 Medications * Be aware that medications may not be up to date on this document. Alwaysverify current medications with the patient. Medication Sig Dispensed Refills Start Date End Date Status citalopram (CeleXA) 10 MG tablet Take 1 (one) tablet by mouth once daily Active alendronate (FOSAMAX) 70 MG tablet Take 1 (one) tablet by mouth every 7 days 04/08/2021 Active clobetasol (TEMOVATE) 0.05 % solutionIndications:Ra sh and other nonspecific skin eruption Apply to affected areas on scalp up to twice daily as needed for itching. 30 days supply. 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 (FLUCELVAX QUADRIVALENT; 6MO+) (CCIIV4) 12/09/2018 Social History Tobacco Use Types Packs/Day Years Used Date Smoking Tobacco: Never Smokeless Tobacco: Never Tobacco Cessation:Counseling Given: Not Answered Alcohol Use Standard Drinks/Week Comments Yes 0 (1 standard drink = 0.6 oz pur e alcohol) Sex and Gender Information Value Date Recorded Sex Assigned at Not on file Gender Identity Not on file Sexual Orientation Not on file Plan of Treatment Not on file Care Teams Ship Officer Relationship Specialty Start Date End Date Keven Crenshaw MD [address] [facility] [address] [place] [address] PCP - General 09/09/10
--- OUTSIDE RECORDS SUMMARY | 2024-04-13 00:48 | XMS_ITS | Clinical Summary ---
Author Organization [facility] Address [address] [place] [address] Care Team Providers Care Lap Polisher Name Role Phone Keven Crenshaw MD Primary Care Provider + Source Comments [facility],non-owned Affiliates and Associated Physician Practices is amultiple site organization consisting of ambulatory clinics and hospital sitesin [place], [place], [place] and [place]. This disclosure is being madepursuant to the Care Everywhere program and may not contain all information available regarding this patient. Last updated 17.[facility] Allergies Active Allergy Reactions Criticality Noted Date [...] URE, QUADR. (FLUCELVAX QUADRIVALENT; 6MO+) (CCIIV4) 12/09/2018 Family History Medical History Relation Name Comments Psoriasis Brother Cancer Maternal Aunt CVA Maternal Grandfather Cancer Mother Cancer - Skin, Melanoma Paternal Grandfather Cancer - Breast Neg Hx Cancer - Skin, Non Melanoma Neg Hx Eczema Neg Hx Hemophilia Neg Hx Relation Name Status Comments Brother Maternal Aunt Maternal Grandfather Mother Paternal Grandfather Social History Tobacco Use Types Packs/Day Years Used Date Smoking Tobacco: Never Smokeless Tobacco: Never Tobacco Cessation:Counseling Given: Not Answered Alcohol Use Standard Drinks/Week Comments Yes 0 (1 standard drink = 0.6 oz pur e alcohol) Sex and Gender Information Value Date Recorded Sex Assigned at Not on file Gender Identity Not on file Sexual Orientation Not on file Plan of Treatment Health Maintenance Due Date Last Done Comments COLOGUARD (AGES 45-75) - COLON CA SCREENING 1960 COLON MONITORING 1960 COLONOSCOPY - COLON CA SCREENING 1960 CT COLONOGRAPHY - COLON CA SCREENING 1960 Colorectal Cancer Screening 1960 FIT - COLON CA SCREENING 1960 FLEX SIG - COLON CA SCREENING 1960 LIPID TESTING 1960 PAP SMEAR 1960 HIV SCREENING 1976 HEPATITIS C SCREENING 12/03/1979 DTAP/TDAP/TD VACCINES (1 - Tdap) 1980 PNEUMOCOCCAL VACCINE 50+ (1 of 1 - PCV) 12/08/2011 ZOSTER VACCINE (1 of 2) 12/08/2011 COVID-19 VACCINE (1 - 2023- season) 2023 INFLUENZA VACCINE (#1) 2023 2, 12/09/2020, 12/18/2019, Additional history exists DEPRESSION SCREENING 03/08/2024 MAMMOGRAM 08/05/2025 08/06/2023, 0503/2023, 06/22/2022, Additional history exists Respiratory Syncytial Virus (RSV) Vaccine Pt: or over 60 yrs (1 - 1-dose 75+ series) 2036 HEPATITIS B VACCINE Aged Out No longe r eligible based on patient's age to complete this topic HIB VACCINE Aged Out No longer eligi ble based on patient's age to complete this topic HPV VACCINE Aged Out No longer eligi ble based on patient's age to complete this topic MENINGOCOCCAL (Group B) VACCINE Aged Out No longer eligible based on patient's age to complete this topic MENINGOCOCCAL VACCINE Aged Out No grace morgan eligible based on patient's age to complete this topic PNEUMOCOCCAL VACCINE Aged Out No long er eligible based on patient's age to complete this topic Care Teams Lap Polisher Relationship Specialty Start Date End Date Keven Crenshaw MD [address] [address] PCP - General 09/09/10
--- OUTSIDE RECORDS SUMMARY | 2024-04-13 00:48 | XMS_ITS | Patient Health Summary ---
Author Organization [facility] Address [address] [address] Care Team Providers Care Chucker Name Role Phone Keven Crenshaw MD Primary Care Provider + Note from [facility],non-owned Affiliates and Associated Physician Practices is amultiple site organization consisting of ambulatory clinics and hospital sitesin [place], [place], [place] and [place]. This disclosure is being madepursuant to the Care Everywhere program and may not contain all information available regarding this patient. Last updated 17.[facility] Allergies * Sulfa Drugs(Rash) -Medium Criticality Medications * Be aware that medications may not be up to date on this document. Alwaysverify current medications with the patient. * citalopram (CeleXA) 10 MG tablet Take 1 (one) tablet by mouth once daily * alendronate (FOSAMAX) 70 MG tablet(Started 04/08/2021) Take 1 (one) tablet by mouth every 7 days * clobetasol (TEMOVATE) 0.05 % solution(Started 05/09/2021) Apply to affected areas on scalp up to twice daily as needed for itching. 30 days supply. 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 (FLUCELVAX QUADRIVALENT; 6MO+) (CCIIV4)(Given 12/09/2018) Social History Tobacco Use Types Packs/Day Years Used Date Smoking Tobacco: Never Smokeless Tobacco: Never Tobacco Cessation:Counseling Given: Not Answered Alcohol Use Standard Drinks/Week Comments Yes 0 (1 standard drink = 0.6 oz pur e alcohol) Sex and Gender Information Value Date Recorded Sex Assigned at Not on file Gender Identity Not on file Sexual Orientation Not on file Procedures * DERMATOPATHOLOGY(Performed 06/16/2022) Performed for Onychodystrophy * CULTURE FUNGUS OTHER+FUNGUS SMEAR(Performed 06/16/2022) Performed for Onychodystrophy * VA DESTROY PREMALIG LESION, 1ST LESION(Performed 05/09/2021) Performed for Actinic keratosis * VA DESTRUCT BENIGN LESION, 1-14(Performed 05/03/2020) Performed for Other viral warts * VA DESTROY PREMALIG LESION, 1ST LESION(Performed 03/31/2019) Performed for Actinic keratosis * VA DESTROY PREMALIG LESION, 2-14(Performed 03/31/2019) Performed for Actinic keratosis * VA DESTROY PREMALIG LESION, 1ST LESION(Performed 01/18/2018) Performed for Actinic keratosis Results * DERMATOPATHOLOGY (Specimen Count = 1) (06/16/2022 3:42 PM CDT) Case Report Dermatopathology Report Case: [id number] Authorizing Provider: Jillian Lyon MD Collected: 06/16/2022 03:42 PM Ordering Location: [facility] Received: 06/16/2022 04:21 PM Dermatology Pathologist: Kenia Ovalle MD Specimen: Skin, right great toenail 3 11:32 AM CDT DERMATOPATHOLOGY LABORATORY Final Diagnosis Specimen A. SKIN, right great toenail: COMPACT KERATIN CONSISTENT WITH NAIL PLATE (L60.8) (see microscopic description) 3 11:32 AM CDT DERMATOPATHOLOGY LABORATORY Clinical History R/O Onychomycosis 11:32 AM CDT DERMATOPATHOLOGY LABORATORY Gross Description Specimen A: Received is one formalin filled container labeled with the patient's name and designated right great toenail. The specimen consists of a nail clipping measuring [id number]. 11:32 AM CDT DERMATOPATHOLOGY LABORATORY Microscopic Description Specimen A. SKIN, right great toenail: Sections show nail plate with focal parakeratosis. Periodic acid-Ivonne (PAS) stained sections do not highlight fungal organisms. 11:32 AM CDT DERMATOPATHOLOGY LABORATORY Disclaimer An external and internal positive and negative controls are appropriate for the histochemical, immunohistochemical and immunofluorescence stain(s) in this case (if any), except where stated explicitly. The performance characteristics of the stain(s) cited in this report were developed and its performance characteristic determined by the Dermatopathology Laboratory at [facility], directed by Dr. Belen Jose. These tests need not be, and therefore are not, approved by the [place] Food and Drug Administration. The tests are used for clinical purposes. Billing Codes Specimen Charges Stain Charges 81442 1 [id number] 1 11:32 AM CDT DERMATOPATHOLOGY LABORATORY Embedded Images 11:32 AM CDT DERMATOPATHOLOGY LABORATORY Pathology/Cytolo gy TISSUE SPECIMEN FROM SKIN / Unknown 06/16/2022 3:42 PM CDT 06/16/2022 4:21 PM CDT Jillian Lyon MD LAB - PATHOLOGY/CY TOLOGY ORDERABLES DERMATOPATHOLOGY LABORATORY [facility] - Department of Dermatology [facility] [address] [place] [address], [address] [phone] * CULTURE FUNGUS OTHER+FUNGUS SMEAR (06/16/2022 3:42 PM CDT) Fungus Stain Final report [facility] INSURANCE BILL Result 1 [facility] INSURANCE BILL Comment:MICHAELLE/Calcofluor prepa ration: no fungus observed. Fungus Culture Final report [facility] INSURANCE BILL Result 1 [facility] INSURANCE BILL Comment:No yeast or mold iso lated after 4 weeks. Microbiology ENTIRE TOE / Unknown 06/16/2022 3:42 PM CDT 06/16/2022 Narrative Resulting Agency Comment [facility] [address] [facility] [id number] Jillian Lyon MD LAB - MICROBIOLOGY ORDERABLES [facility] [address] [place] [address] * VA DESTROY PREMALIG LESION, 1ST LESION (05/09/2021 9:08 AM FORECLOSURE HOME INSPECTOR) Narrative Jillian Lyon MD - 05/09/2021 9:08 AM FORECLOSURE HOME INSPECTOR Abby Johnston MD 05/09/2021 9:08 AM Diagnosis and treatment options discussed for AK. Verbal consent obtained. Cryotherapy (Liquid Nitrogen) performed to 1 lesion (left upper lip vermilion border) for 5-7 seconds each. Number of cycles: 1. Wound care reviewed and post-cryotherapy handout given. Abby Johnston MD Dermatology Resident, PGY-3 [facility], Department of Dermatology Jillian Lyon MD PROCEDURE/MINOR OSULLIVAN RGICAL ORDERABLES * VA DESTRUCT BENIGN LESION, 1-14 (05/03/2020 9:10 AM FORECLOSURE HOME INSPECTOR) Narrative Jillian Lyon MD - 05/03/2020 9:10 AM FORECLOSURE HOME INSPECTOR Nikita Cleaning MD 05/03/2020 9:10 AM Diagnosis and treatment options discussed. Cryotherapy (Liquid Nitrogen) to 1 VV/iSK on L dorsal hand x 5-6 seconds each. Number of cycles: 1. Wound care reviewed. Jillian Lyon MD PROCEDURE/MINOR OSULLIVAN RGICAL ORDERABLES * VA DESTROY PREMALIG LESION, 2-14, VA DESTROY PREMALIG LESION, 1ST LESION (03/31/2019 9:30 AM FORECLOSURE HOME INSPECTOR) Narrative Jillian Lyon MD - 03/31/2019 9:30 AM FORECLOSURE HOME INSPECTOR Ermelinda Gutierrez MD 03/31/2019 9:31 AM Liquid nitrogen was applied for 7 seconds to the skin lesion(s) (R cheek, L dorsal hand) and the expected blistering or scabbing reaction explained. Patient tolerated the procedure well. Do not pick at the areas. Patient reminded to expect hypopigmented scars from the procedure. Return if lesions fail to fully resolve. Ermelinda Gutierrez MD Dermatology PGY-2 Jillian Lyon MD PROCEDURE/MINOR OSULLIVAN RGICAL ORDERABLES * VA DESTROY PREMALIG LESION, 1ST LESION (01/18/2018 1:54 PM FORECLOSURE HOME INSPECTOR) Narrative Jillian Lyon MD - 01/18/2018 1:54 PM FORECLOSURE HOME INSPECTOR Jillian Lyon MD 01/18/2018 1:54 PM Diagnosis and treatment options discussed. Cryotherapy (Liquid Nitrogen) to 1 lesions for 7 seconds each. Number of cycles: 1. Wound care reviewed. Jillian Lyon MD PROCEDURE/MINOR OSULLIVAN RGICAL ORDERABLES Care Teams Chucker Relationship Specialty Start Date End Date Keven Crenshaw MD [address] [address] PCP - General 09/09/10
--- OUTSIDE RECORDS SUMMARY | 2024-04-13 00:48 | XMS_ITS | Encounter Summary ---
Author Organization [facility] Address [address] [place] [address] Care Team Providers Care Burlesque Dancer Name Role Phone Keven Crenshaw MD Primary Care Provider + Reason for Visit * Reason Onset Date Comments Nurse Only 03/23/2022 Encounter Details Date Type Department Care Team (Late st Contact Info) Description 03/23/2022 Telephone [facility] [address] [place] [address], [place] [address] Jillian Lyon MD [address] [place] [address] [address] [place] [address] Nurse Only Social History Tobacco Use Types Packs/Day Years Used Date Smoking Tobacco: Never Smokeless Tobacco: Never Alcohol Use Standard Drinks/Week Comments Yes 0 (1 standard drink = 0.6 oz pur e alcohol) Sex and Gender Information Value Date Recorded Sex Assigned at Not on file Gender Identity Not on file Sexual Orientation Not on file documented as of this encounter Miscellaneous Notes * Telephone Encounter - [facility] - 03/23/2022 2:19 PM CST Pt schedule was bumped and she needs to reschedule GAUGER documented in this encounter Plan of Treatment Not on file documented as of this encounter Visit Diagnoses Not on filedocumented in this encounter Care Teams Burlesque Dancer Relationship Specialty Start Date End Date Keven Crenshaw MD [address] [address] PCP - General 09/09/10 documented as of this encounter
--- OUTSIDE RECORDS SUMMARY | 2024-04-13 00:48 | XMS_ITS | Referral Summary ---
Author Organization [facility] Address [address] [place] [address] Care Team Providers Care Audit Tech Name Role Phone Keven Crenshaw MD Primary Care Prov ider Allergies Active Allergy Reactions Criticality Noted Date Comments Sulfa Rash Medium 12/29/2023 Sulfa (Sulfonamide Antibiotics) Rash Medium 09/06 Medications alendronate (FOSAMAX) 70 mg tablet Take 1 tablet (70 mg total) by mouth once a week 04/08/2021 Active atorvastatin (LIPITOR) 20 mg tablet 11/12/2023 Active clobetasoL (TEMOVATE) 0.05 % external solution Apply to affected areas on scalp up to twice daily as needed for itching. 30 days supply. 05/09/2021 Active estradioL (ESTRACE) 0.01 % (0.1 mg/gram) vaginal creamIndication s:Vaginal atrophy Insert 1 g into the vagina 2 (two) times a week 42.5 g 3 12/30/2023 Active citalopram (CeleXA) 20 mg tablet Take 1 tablet (20 mg total) by mouth daily Take one tablet daily. 90 tablet 3 12/30/2023 Active Active Problems No known active problems Social History Tobacco Use Types Packs/Day Years Used Date Smoking Tobacco: Never Smokeless Tobacco: Never AUDIT-C Answer Date Recorded Q1: How often do you have a drink containing alc ohol? Monthly or less 12/29/2023 Q2: How many drinks containi ng alcohol do you have on a typical day when you are drinking? 1 or 2 12/29/2023 Q3: How often do you have si x or more drinks on one occasion? 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 Gender Identity Female 12/27/2023 10:26 AM CDT Sexual Orientation Straight 12/27/2023 10 :26 AM CDT Last Filed Vital Signs Vital Sign Reading Time Taken Comments Blood Pressure 126/70 12/29/2023 9:19 AM CDT Pulse - - Temperature - - Respiratory Rate - - Oxygen Saturation - - Inhaled Oxygen Concentration - - Weight 70.3 kg (155 lb) 12/29/2023 9:19 AM CDT Height - - Body Mass Index - - Plan of Treatment Not on file Procedures Procedure Name Priority Date/Time Associated Diagnosis Comments PAP AND HPV, REFLEX TO HPV GENOTYPES Routine 12/29/2023 11:49 AM CDT Cervical cancer screening SCREENING MAMMOGRAM BILATERAL W SAMEER Schedule Routine, Read Routine (OP Routine) 08/06/2023 2:34 PM CDT Screening mammogram, encounter for from Last 3 Months or Most Recently Relevant to Health Maintenance Results * Pap and HPV, reflex to HPV Genotypes (12/29/2023 11:49 AM CDT) Clinical indication Comment [facility] - 01 Comment: NEGATIVE FOR INTRAEPITHELIAL LESION OR MALIGNANCY. THIS SPECIMEN WAS RESCREENED PART OF OUR HOT STRIP FINISHER PROGRAM. Specimen adequacy: Comment [facility] - 01 Comment: Satisfactory for evaluation. Endocervical and/or squamous metaplastic cells (endocervical component) are present. Clinician provided ICD10 Comment [facility] - 01 Comment:Z12.4 Performed by Comment [facility] - 01 Comment:Jamilah Greer, Cytotec hnologist (ASC) QC reviewed by Comment [facility] - 01 Comment:Mary Jane Washburn, Cyto technologist . . [facility] - 01 Note: Comment [facility] - 01 Comment: The Pap smear is a screening test designed to aid in the detection of premalignant and malignant conditions of the uterine cervix. It is not a diagnostic procedure and should not be used as the sole means of detecting cervical cancer. Both false-positive and false-negative reports do occur. Test methodology Comment [facility] - 01 Comment: This liquid based ThinPrep(R) pap test was screened with the use of an image guided system. HPV Aptima Negative Negative [facility] 02 Comment: This nucleic acid amplification test detects fourteen high-risk HPV types (16,18,31,33,35,39,45,51,52,56,58,59,66,68) without differentiation. HPV Genotype Reflex Comment [facility] - 01 Comment:Criteria not met, HP V Genotype not performed. Thin prep-Endocervical 12/29/2023 11:49 AM CDT 12/29/2023 Narrative [facility] - 01/05/2024 8:19 AM CDT Performed at: - [facility] [id number] Core Mounter: Cira Lindsey MD, Phone: [phone] Performed at: - [facility] [id number] Core Mounter: Cira Lindsey MD, Phone: [phone] Specimen Comment: Source.............Cervix;Endocervix Specimen Comment: No. of containers..01 ThinPrep Vial Danya Cortez NP LAB CYTOLOGY ORDERABLES Final Result [facility] - 01 [facility] 02 * Screening Mammogram Bilateral W Sameer (08/06/2023 2:34 PM CDT) Anatomical Region Laterality Modality Breast Bilateral Mammography Narrative 08/06/2023 2:49 PM CDT Examination: Screening Mammogram Bilateral W Sameer: 08/06/23 Clinical: Screening mammogram, encounter for. Prior Study Comparisons: Comparison was made to the prior available relevant studies at the time of interpretation. Findings: Bilateral No significant masses, malignant type calcifications, skin thickening, nipple retraction, or significant lymphadenopathy is noted in either breast. The CAD review showed no significant findings. The breasts have scattered areas of fibroglandular density. The patient will be notified of results by letter. Impression: BI-RADS ATLAS category (overall): 1 - Negative There is no mammographic evidence of malignancy. Routine Screening Mammogram in 1 Yr is recommended for bilateral Overall Assessment: 1 - Negative us Self Screening Mammogram IMG MAMMO PROCEDURES Fi nal Result from Last 3 Months or Most Recently Relevant to Health Maintenance Insurance [facility] CHO[facility] PLUS [facility] CHO[facility] PLUS [facility] CHOICE PLUS [facility] Care Teams Audit Tech Relationship Specialty Start Date End Date Keven Crenshaw MD [address] [place] [address] PCP - General 03/23/17
--- OUTSIDE RECORDS SUMMARY | 2024-04-13 00:48 | XMS_ITS | Clinical Summary ---
Author Organization [facility] Address [address] [place] [address] Care Team Providers Care Rn Hematology Name Role Phone Keven Crenshaw MD Primary [...] Active Active Problems No known active problems Medical History Medical History Date Comments Osteoporosis Family History Medical History Relation Name Comments Cancer Father Cancer Mother Breast cancer Mother's Sister Ovarian cancer Other 1 great grandmo ther with ovarian ca in her 30s Relation Name Status Comments Father Mother Mother's Sister Alive Other 1 Other 2 Alive Social History Tobacco Use Types Packs/Day Years [...] on file 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 Gender Identity Female 12/27/2023 10:26 AM CDT Sexual Orientation Straight 12/27/2023 10 :26 AM CDT Obstetrics History Last Filed Vital Signs Vital Sign Reading Time Taken Comments Blood Pressure 126/70 12/29/2023 9:19 AM CDT Pulse - - Temperature - - Respiratory Rate - - Oxygen Saturation - - Inhaled Oxygen Concentration - - Weight 70.3 kg (155 lb) 12/29/2023 9:19 AM CDT Height - - Body Mass Index - - Plan of Treatment Health Maintenance Due Date Last Done Comments Colon Cancer Screening-Colonoscopy 1961 Depression Screening 1960 Hepatitis C Screening 1960 DTaP/Tdap/Td Vaccine (1 - Tdap) 1972 Hepatitis B Screening 12/08/1979 Zoster Vaccine (1 of 2) 12/08/2011 Influenza Vaccine (#1) 2023 , 12/09/2020, 12/18/2019, Additional history exists Breast Cancer Screening-Mammogram 08/05/2024 08/06/2023, 06/22/2022, 05/19/2021, Additional history exists Cervical Cancer Screening 12/28/2024 12/29/2023 Regular Well Visit/Exam 18-64 12/28/2024 12/29/2023 Pneumococcal vaccine <65 Aged Out No longer eligible based on patient's age to complete this topic Procedures Procedure Name Priority Date/Time Associated Diagnosis [...] THIS SPECIMEN WAS RESCREENED PART OF OUR PRIZE COORDINATOR PROGRAM. Specimen adequacy: Comment [facility] - 01 Comment: Satisfactory for evaluation. Endocervical and/or squamous metaplastic cells (endocervical component) are present. Clinician provided ICD10 Comment [facility] - 01 Comment:Z12.4 Performed by Comment [facility] - 01 Comment:Jamilah Greer, Cytotec hnologist (ASCP) QC reviewed by Comment [facility] - 01 [...] 01/05/2024 8:19 AM CDT Performed at: - [address] [id number] Clinical Staff Rn: Cira Lindsey MD, Phone: [phone] Performed at: - [address] [id number] Clinical Staff Rn: Cira Lindsey MD, Phone: [phone] Specimen Comment: Source.............Cervix;Endocervix Specimen Comment: No. of containers..01 ThinPrep Vial Danya Cortez NP LAB CYTOLOGY ORDERABLES Final Result [facility] - 01 [facility] 02 * [...] for bilateral Overall Assessment: 1 - Negative Self Screening Mammogram IMG MAMMO PROCEDURES Fi nal Result from Last 3 Months or Most Recently Relevant to Health Maintenance Insurance [facility] CHO[facility] H[facility]/PPO Address: [address] [place] [address] [facility] CHOICE [facility] HMO/PPO Address: [address] [place] [address] [facility] CHOICE [facility] HMO/PPO Address: [address] [place] [address] [facility] Care Teams Rn Hematology Relationship Specialty Start Date End Date Keven Crenshaw MD [address] [place] [address] PCP - General 03/23/17
[2024-04-13 07:46] VITALS: BP 123/65; PULSE 76; RESP 16; TEMP 36; O2SAT 98; BMI 23.3
[2024-04-13] MEDS: LACTATED RINGERS 1,000 ML 150 ML IV CONT (07:57)
--- NOTE | 2024-04-13 07:59 | WPDANESEPPF ---
Anes - Initial Pre Proc Eval Procedure: Operation Date: 04/13/24 09:00 Proposed Procedures p Screening Colonoscopy - Brady Rocha MD Date/Time: 04/13/24 07:59 Surgeon: Brady Rocha MD Pre Op Diagnosis: screening malignant neoplasm of colon Patient Data Age: 63 Gender: F Height: 1.7 m Weight: 67.8 kg Last Vital Signs Temp 36.0 C L 04/13/24 07:46 Pulse 76 04/13/24 07:46 Resp 16 04/13/24 07:46 BP 123/65 04/13/24 07:46 Pulse Ox 98 04/13/24 07:46 O2 Del Method Room Air 04/13/24 07:46 Allergies Allergy/AdvReac Type Severity Reaction Status Date / Time Sulfa (Sulfonamide Allergy Mild Unknown Verified 03/31/24 13:33 Antibiotics) Home Medications ?Medication ?Instructions ?Recorded ?Confirmed ?Type citalopram 10 mg tablet (Celexa) 10 mg PO DAILY 07/07/20 04/13/24 History alendronate 70 mg tablet See Rx Instructions .Route 11/21/23 04/13/24 Rx .COMPLEX #4 tabs atorvastatin 20 mg tablet 20 mg PO DAILY #90 tabs 04/08/24 04/13/24 Rx Patient hx anesthesia problems: none Family hx anesthesia problems: none Results Review: All pre-operative results and documents have been reviewed as part of the pre-operative evaluation. [facility] Past Medical History Medical History Wears glasses Depression Anxiety Closed intertrochanteric fracture of left femur Surgical History Surgical History History of hip surgery (07/2020) ORIF left hip fx Family History Family History Mother Carcinoma of colon, Onset Age: 77 Other Depression Social History Social History Social History: Patient lives at home with her . She currently works for the [employer]. She denies smoking. She occasionally drinks alcohol. Smoking status: Never smoker Second hand tobacco smoke exposure: No Alcohol intake: never Drinks per week: 2 Substance use: never Substance use type: does not use Do You Feel Safe in your Home?: Yes Lack of Transportation: No Lack of Food: Never True Current Housing: I Have Housing Concerned About Future Housing: No Difficulty Paying Gas/Electric Bills: No Difficulty Paying for Meds: No Currently Unemployed: No Education: Master's Degree or Higher Difficulty w/ Childcare or Family Care: No Living arrangements: with family Additional living arrangements comments: Patient lives at home with her Occupation/Education: occupation Additional occupation/education comments: Patient reports that she works for the [employer] Gender identity (if verbalized by the patient): Female Sexual Orientation (if Verbalized by the Patient): Straight or Heterosexual Spiritual care concerns: No Anes - Eval Final PreProcedure Day of Procedure 04/13/24 07:59 Patient weight: normal Heart: regular rate and rhythm Lungs: clear to auscultation Airway: Mallampati scale class II Neurological: alert and oriented Last oral intake: >/= 8 hours ASA classification: II Emergent: no Anesthetic plan: proceed Anesthesia type and monitoring: general GIVS and standard monitoring Results Review: All pre-operative results and documents have been reviewed as part of the pre-operative evaluation. Informed Consent: The patient's anesthetic plan and its attendant risks and benefits were discussed with the patient/family/POA. Questions were solicited and answers provided to the satisfaction of the patient/family/POA.
--- NOTE | 2024-04-13 08:37 | P.HP_ITS ---
History of Present Illness History of Present Illness Consent: Risks, benefits, and alternatives have been discussed and questions answered. Patient agrees to proceed with procedure. Chief complaint: screening malignant neoplasm of colon Narrative: Magnolia Covarrubias is a 63 year old female here for screening colonoscopy, last one 10 years ago Review of Systems Review of Systems: All systems reviewed & are unremarkable except as noted in HPI and below PMFSH Past Medical History Medical History (Updated 04/13/24 @ 08:39 by Brady Rocha MD) Colon cancer screening Wears glasses Depression Anxiety Closed intertrochanteric fracture of left femur Surgical History Surgical History History of hip surgery (07/2020) ORIF left hip fx Family History Family History Mother Carcinoma of colon, Onset Age: 77 Other Depression Social History Social History Social History: Patient lives at home with her . She currently works for the [employer]. She denies smoking. She occasionally drinks alcohol. Smoking status: Never smoker Second hand tobacco smoke exposure: No Alcohol intake: never Drinks per week: 2 Substance use: never Substance use type: does not use Do You Feel Safe in your Home?: Yes Lack of Transportation: No Lack of Food: Never True Current Housing: I Have Housing Concerned About Future Housing: No Difficulty Paying Gas/Electric Bills: No Difficulty Paying for Meds: No Currently Unemployed: No Education: Master's Degree or Higher Difficulty w/ Childcare or Family Care: No Living arrangements: with family Additional living arrangements comments: Patient lives at home with her Occupation/Education: occupation Additional occupation/education comments: Patient reports that she works for the [employer] Gender identity (if verbalized by the patient): Female Sexual Orientation (if Verbalized by the Patient): Straight or Heterosexual Spiritual care concerns: No Meds Home Medications and Allergies Home Medications ?Medication ?Instructions ?Recorded ?Confirmed ?Type citalopram 10 mg tablet (Celexa) 10 mg PO DAILY 07/07/20 04/13/24 History alendronate 70 mg tablet See Rx Instructions .Route 11/21/23 04/13/24 Rx .COMPLEX #4 tabs atorvastatin 20 mg tablet 20 mg PO DAILY #90 tabs 04/08/24 04/13/24 Rx Allergies Allergy/AdvReac Type Severity Reaction Status Date / Time Sulfa (Sulfonamide Allergy Mild Unknown Verified 03/31/24 13:33 Antibiotics) Vital Signs Vital Signs - 24 hr 04/13/24 07:46 Temperature 96.8 F L Pulse Rate 76 Respiratory Rate 16 Blood Pressure 123/65 Pulse Oximetry 98 Oxygen Delivery Room Air Exam Const: General: comfortable and no acute distress HENMT: Face/Nose/Sinus: Normal nares present Eyes: General: appearance normal, both eyes and all related structures Neck: Neck: no JVD Resp: Auscultation: clear to auscultation bilaterally Cardio: Rate: regular rate Rhythm: regular rhythm GI: Inspection: non-distended GI Palp: Yes Soft to palpation Skin: General skin exam: normal color Neuro: Speech: normal speech Extrem: General: normal to inspection Psych: Mental Status: mental status grossly normal Assessment and Plan Assessment and plan (1) Colon cancer screening: Code(s): Z12.11 - Encounter for screening for malignant neoplasm of colon Status: Acute Assessment and Plan: colonoscopy
[2024-04-13 08:51] VITALS: BP 106/52; PULSE 68; RESP 17; O2SAT 98
[2024-04-13 09:01] VITALS: BP 111/66; PULSE 58; RESP 16; O2SAT 97
[2024-04-13 09:11] VITALS: BP 110/69; PULSE 57; RESP 20; O2SAT 100
== END 2024-04-13 09:21 | disposition home or self-care (01) ==
PROVIDERS: PCP Family Medicine Adolescent Medicine; Visit Provider Internal Medicine Gastroenterology
PROC: 0DJD8ZZ Inspection of Lower Intestinal Tract, Via Natural or Artificial Opening Endoscopic (ICD-10-PCS; CPT 45378; principal; 2024-04-13 09:00)
DX: Z12.11 Encounter for screening for malignant neoplasm of colon (principal); K64.8 Other hemorrhoids
CPT/HCPCS: 45378; J2704; J7120